=== PATIENT | male | born 1945 | race American Indian/Alaskan Native ===

== ENCOUNTER 2016-11-21 09:32 | Outpatient (CLI) | payer BC ==
[2016-11-21 10:17] LABS: Albumin 4.2 g/dL (3.9-5); BUN/Creatinine Ratio 12.42; Calcium 9.1 mg/dL (8.4-10.2); Chloride 104.9 mmol/L (98-107); Phosphorous 3.2 mg/dL (2.5-4.5); Potassium 4.9 mmol/L (3.6-5.0)
[2016-11-23 18:46] LABS: Myeloperoxidase Antibody <1.0 AI (<1.0)
[2016-11-23 22:25] LABS: Albumin 3.8 g/dL (3.8-4.8); Gamma Globulin 0.9 g/dL (0.8-1.7)
== END 2016-11-21 09:33 | disposition home or self-care (01) ==
LOC: LAB 09:32
PROVIDERS: ATTEND Internal Medicine Nephrology
DX: I12.9 Hypertensive chronic kidney disease with stage 1 through stage 4 chronic kidney disease, or unspecified chronic kidney disease (principal); N18.9 Chronic kidney disease, unspecified; E11.22 Type 2 diabetes mellitus with diabetic chronic kidney disease; R94.4 Abnormal results of kidney function studies
CPT/HCPCS: 36415; 80048; 80074; 82040; 84100; 84165; 86021